=== PATIENT | female | born 1960 | race Caucasian/White ===

== ENCOUNTER 2019-07-29 16:21 | Inpatient (IN) | payer BC ==
[~2019-07-29] VITALS: Ht 162.6 cm; Wt 62.7 kg
--- NOTE | 2019-07-29 16:37 | NUR ---
pt ambulating with steady gait. A&O x4. c/o altered mental status from 7-9am today. per patient does not recall what happened between those times but "feels normal" now. speech clear and able to make needs known / follow commands. even BUE strength. no facial drooping noted, smile even, PERRLA. Denies any BARNES, dizziness, or blurred vision. Breathing even and unlabored. No SOB noted. Denies any pain or discomfort. Denies any / GI distress. fall precautions implemented. bed low, s/r up x2
--- NOTE | 2019-07-29 16:40 | NUR ---
ERMD at bedside for MSE
--- NOTE | 2019-07-29 16:56 | NUR ---
pt taken to Radiology dept for CT scan
[2019-07-29 17:00] LABS: BASOPHILS # (AUTO) 0.1 K/uL (0.0-8.0); BASOPHILS % (AUTO) 1.1 % (0.0-2.0); EOSINOPHILS # (AUTO) 0.1 K/uL (0.0-0.7); EOSINOPHILS % (AUTO) 1.9 % (0.0-7.0); HEMATOCRIT 40.5 % (31.2-41.9); HEMOGLOBIN 13.6 g/dL (10.9-14.3); LYMPHOCYTES # (AUTO) 1.7 K/uL (20.0-40.0); MEAN CORPUSCULAR HEMOGLOBIN 31.4 uug (24.7-32.8); MEAN CORPUSCULAR HGB CONC 34 g/dL (32.3-35.6); MEAN CORPUSCULAR VOLUME 93.8 fL (75.5-95.3); MONOCYTES # (AUTO) 0.5 K/uL (2.0-10.0); NEUTROPHILS # (AUTO) 3.6 K/uL (1.8-8.9); PLATELET COUNT (AUTO) 290 K/uL (179-408); RED BLOOD CELL COUNT(AUTO) 4.32 MIL/uL (3.63-4.92)
[2019-07-29 17:07] LABS: CREATININE 0.8 mg/dL (0.6-1.3); POTASSIUM 4.7 mmol/L (3.5-5.1)
[2019-07-29 17:13] LABS: BILIRUBIN,DIRECT 0.1 mg/dL (0.0-0.2); BILIRUBIN,TOTAL 0.3 mg/dL (0.2-1.0); TOTAL PROTEIN, SERUM 7.5 g/dL (6.4-8.2)
[2019-07-29] MEDS ORDERED: ASPIRIN 325 MG TABLET ONE (18:07)
[2019-07-29] MEDS ORDERED: ASPIRIN 325 MG TABLET PO ONE (18:15)
[2019-07-29 18:17] LABS: *BILIRUBIN,URIN NEGATIVE (NEGATIVE); *BLOOD, URINE NEGATIVE (NEGATIVE); *CLARITY,URINE CLEAR (CLEAR); *COLOR,URINE YELLOW (YELLOW); *KETONES,URINE NEGATIVE (NEGATIVE); *UROBILINOGEN,URINE 0.2 E.U./dl (NORMAL); LEUKOCYTE ESTERASE ,URINE NEGATIVE (NEGATIVE); NITRITE, URINE NEGATIVE (NEGATIVE); PH,URINE 6.5 (5.0-8.0); UGLUCOSE NEGATIVE (NEGATIVE)
--- NOTE | 2019-07-29 18:19 | NUR ---
MEGAN MEDINA spoke to Dr Pemberton for Tele admit.
--- NOTE | 2019-07-29 19:06 | NUR ---
HAND OFF AND SBAR RECEIVED FROM OUTGOING DAY SHIFT RN PT WILL BE ADMITTED TO TELE RM [address] CASAS DX TIA ROOM LIGHT WAS OFF PER PT PREFERENCE, WITH AT BEDSIDE PT IS UP AND ABOUT IN ROOM, PLEASANT, SMILING ABLE TO SPEAK CLEAR AND COMPLETE SENTENCES G20 R AC SALINE LOCK NAD MONITORED ACCORDINGLY UPDATED ABOUT TRANSPORT: PENDING RECEIPT OF HAND OFF TO [facility]
--- NOTE | 2019-07-29 19:50 | NUR ---
ADMITTED A 59 YEARS OLD FEMALE WITH DIAGNOSIS OF TIA. PATIENT AAOX4. IN NO ACUTE DISTRESS. DENIES ANY PAIN OR SOB. NSR ON TELE AT 67/MIN. IV SITE ON RIGHT AC INTACT AND PATENT. NEEDS ASSESSED AND ATTENDED TO. ROUTINE ADMISSION CARE DONE. PLAN OF CARE INITIATED. SAFETY MEASURE INITIATED AND CALL [facility] WITHIN REACH. CONTINUE TO MONITOR.
--- NOTE | 2019-07-29 19:55 | NUR ---
TRANSPORTED VIA WHEELCHAIR BY JOVANNY HARRISON
[2019-07-29 20:15] VITALS: BP 130/85
[2019-07-29] MEDS ORDERED: ONDANSETRON 4 MG/2 ML VIAL IV PRN (20:30)
[2019-07-29] MEDS ORDERED: ACETAMINOPHEN 325 MG TABLET PO PRN (20:30)
[2019-07-30] VITALS: BP 115/68
[2019-07-30 05:23] VITALS: BP 108/66
--- NOTE | 2019-07-30 06:18 | NUR ---
AAOX4. IN NO ACUTE DISTRESS. DENIES ANY PAIN OR SOB. DENIES ANY FURTHER CONFUSION OR FORGETFULNESS. NSR ON TELE AT 62/MIN. IV SITE ON RIGHT AC REMAINS INTACT AND PATENT. SAFETY MEASURE MAINTAINED AND CALL [facility] WITHIN REACH.
[2019-07-30 06:41] LABS: BASOPHILS % (AUTO) 0.8 % (0.0-2.0); EOSINOPHILS # (AUTO) 0.1 K/uL (0.0-0.7); EOSINOPHILS % (AUTO) 2.8 % (0.0-7.0); HEMATOCRIT 39.7 % (31.2-41.9); HEMOGLOBIN 13.2 g/dL (10.9-14.3); LYMPHOCYTES # (AUTO) 1.4 K/uL (20.0-40.0); LYMPHOCYTES % (AUTO) 28.5 % (20.5-51.5); MEAN CORPUSCULAR HEMOGLOBIN 31.6 uug (24.7-32.8); MEAN CORPUSCULAR HGB CONC 33 g/dL (32.3-35.6); MEAN CORPUSCULAR VOLUME 94.8 fL (75.5-95.3); MONOCYTES # (AUTO) 0.4 K/uL (2.0-10.0); MONOCYTES % (AUTO) 7.5 % (0.0-11.0); NEUTROPHILS # (AUTO) 3.1 K/uL (1.8-8.9); NEUTROPHILS % (AUTO) 60.4 % (38.5-71.5); PLATELET COUNT (AUTO) 246 K/uL (179-408); RED BLOOD CELL COUNT(AUTO) 4.18 MIL/uL (3.63-4.92); WHITE BLOOD COUNT (AUTO) 5.1 K/uL (3.8-11.8)
[2019-07-30 07:09] LABS: THYROID STIMULATING HORMONE 2.465 mIU/mL (0.358-3.740)
[2019-07-30 07:37] LABS: BILIRUBIN,TOTAL 0.4 mg/dL (0.2-1.0); CREATININE 0.7 mg/dL (0.6-1.3); MAGNESIUM 1.9 mg/dL (1.8-2.4); PHOSPHOROUS 3.8 mg/dL (2.5-4.9); POTASSIUM 3.8 mmol/L (3.5-5.1); TOTAL PROTEIN, SERUM 6.5 g/dL (6.4-8.2)
--- NOTE | 2019-07-30 08:18 | NUR ---
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 MRI Bran without contrast followed up with schedule for 11am, transport arrangement facilitated, checklist.consent signed by patient
[2019-07-30] MEDS ORDERED: ASPIRIN 81 MG TAB.CHEW PO SCH (09:00)
[2019-07-30 10:15] VITALS: BP 108/70
--- NOTE | 2019-07-30 10:41 | NUR ---
Transported via gurney/ambulance to [facility] for MRI brain
--- NOTE | 2019-07-30 11:45 | NUR ---
Back from [facility]. MRI Brain done
[2019-07-30 12:32] VITALS: BP 105/68
[2019-07-30 15:21] VITALS: BP 113/66
[2019-07-30] MEDS ORDERED: ATOR40TA PO (15:35)
[2019-07-30] MEDS ORDERED: ASPI81TA31 PO (15:35)
--- NOTE | 2019-07-30 16:31 | NUR ---
Seen by Neurologist and Hospitalist. With discharge order to home. Saline lock removed. Tele removed. Prescription and DC instruction given to patient, verbalized understanding. CD and MRI report given. Went home per ambulatory per patient's request in fair condition, not in distress, afebrile.
[2019-07-30] MEDS ORDERED: ATORVASTATIN 40 MG TABLET PO SCH (21:00)
== END 2019-07-30 16:35 | disposition home or self-care (01) | DRG 72 ==
LOC: ER 16:21 → TELE3 19:19
PROVIDERS: ADMIT Internal Medicine; ATTEND Internal Medicine
DX: G45.4 Transient global amnesia (principal); Z86.011 Personal history of benign neoplasm of the brain; I70.0 Atherosclerosis of aorta; G25.81 Restless legs syndrome; I25.2 Old myocardial infarction; G43.909 Migraine, unspecified, not intractable, without status migrainosus; I73.9 Peripheral vascular disease, unspecified; R94.31 Abnormal electrocardiogram [ECG] [EKG]; E03.9 Hypothyroidism, unspecified; G31.9 Degenerative disease of nervous system, unspecified; E78.00 Pure hypercholesterolemia, unspecified
CPT/HCPCS: 36415; 70030-TC; 70450; 70551; 71045; 83735; 84100; 84443; 85025; 85730; 93005; A4663; G0378